=== PATIENT | female | born 1950 | race Caucasian/White ===

== ENCOUNTER 2023-12-12 15:46 | Inpatient (IN) | payer MEDICARE, OTHER ==
[2023-12-12] MEDS ORDERED: Sodium Chloride 0.9% 10 ML Syringe FLUSH PRN (16:17)
[2023-12-12] MEDS: Sodium Chloride 0.9% 1,000 ML IV SCH ×3 (17:07→22:53)
[2023-12-12 17:10] LABS: BASOPHILS PERCENT AUTO 0.3 % (0.0-1.0); EOSINOPHILS PERCENT AUTO 0.1 % (0.0-6.0); HEMATOCRIT 31.4 % (37.0-47.0); IMMATURE GRAN ABSOLUTE AUTO 0.03 K/mm3 (0.00-0.05); IMMATURE GRAN PERCENT AUTO 0.4 % (0.0-0.4); LYMPHOCYTES ABSOLUTE AUTO 1.7 K/mm3 (1.0-4.8); LYMPHOCYTES PERCENT AUTO 21.9 % (24.0-44.0); MEAN CORPUSCULAR HEMOGLOBIN 31.3 pg (28.0-32.0); MEAN CORPUSCULAR VOLUME 89.5 fl (83.0-99.0); MEAN PLATELET VOLUME 9.3 fl (9.4-12.3); MONOCYTES ABSOLUTE AUTO 0.6 K/mm3 (0.0-0.8); MONOCYTES PERCENT AUTO 7.3 % (0.0-8.0); NEUTROPHILS ABSOLUTE AUTO 5.5 K/mm3 (1.8-7.7); PLATELET COUNT,PLT 232 K/mm3 (150-400); RED BLOOD CELL COUNT 3.51 M/mm3 (4.10-5.30); WHITE BLOOD CELL COUNT,WBC 7.82 K/mm3 (3.9-11.3)
[2023-12-12 17:39] LABS: A/G RATIO 1.2 (1-2); ALBUMIN 3.9 g/dl (3.4-5.0); ANION GAP 26.6 (5-15); BILIRUBIN TOTAL 0.5 mg/dL (0.2-1.0); BUN/CREATININE RATIO 17.2 (14-18); C-REACTIVE PROTEIN 0.86 mg/dL (<0.30); CALCIUM 8.6 mg/dL (8.5-10.1); CREATININE 6.7 mg/dL (0.55-1.02); EST CRCL DRUG DOSING (CG) 5.21 mL/min; MAGNESIUM 2.2 mg/dL (1.8-2.4); PHOSPHORUS 8.4 mg/dL (2.6-4.7); POTASSIUM,K 3.6 mEq/L (3.5-5.1); PROTEIN TOTAL,TP 7.2 g/dl (6.4-8.2)
[2023-12-12 19:24] LABS: APPEARANCE,URINE CLEAR (Clear); BILIRUBIN,URINE NEGATIVE (Negative); COLOR,URINE YELLOW (Yellow); GLUCOSE,URINE NEGATIVE (Negative); KETONES,URINE NEGATIVE (Negative); LEUKOCYTE ESTERASE,URINE TRACE (Negative); NITRITE,URINE NEGATIVE (Negative); OCCULT BLOOD,URINE NEGATIVE (Negative); PH,URINE 5.5 (5.0-8.0); PROTEIN,URINE 1+ (Negative); UROBILINOGEN,URINE 0.2 (0.2-1.0)
[2023-12-12 19:25] LABS: ANION GAP 24.5 (5-15); BUN/CREATININE RATIO 18.3 (14-18); CALCIUM 8.5 mg/dL (8.5-10.1); CREATININE 6.4 mg/dL (0.55-1.02); EST CRCL DRUG DOSING (CG) 5.46 mL/min; POTASSIUM,K 3.5 mEq/L (3.5-5.1)
[2023-12-12 19:34] LABS: BACTERIA,URINE FEW /hpf (FEW); MUCUS,URINE FEW /hpf (FEW); RBC,URINE 0-5 /hpf (0-5)
[2023-12-12 22:30] LABS: ANION GAP 22.3 (5-15); BUN/CREATININE RATIO 17.9 (14-18); CALCIUM 7.9 mg/dL (8.5-10.1); CREATININE 5.8 mg/dL (0.55-1.02); EST CRCL DRUG DOSING (CG) 6.02 mL/min; POTASSIUM,K 3.3 mEq/L (3.5-5.1)
[2023-12-12] MEDS: Sodium Bicarbonate 650 MG Tab PO SCH (22:52)
[2023-12-13] MEDS: Heparin Sodium 5,000 Units/ML Vial SUBCUT SCH (00:03)
[2023-12-13 04:47] LABS: BASOPHILS PERCENT AUTO 0.4 % (0.0-1.0); EOSINOPHILS ABSOLUTE AUTO 0.1 K/mm3 (0.0-0.4); EOSINOPHILS PERCENT AUTO 1.2 % (0.0-6.0); HEMATOCRIT 25.9 % (37.0-47.0); IMMATURE GRAN ABSOLUTE AUTO 0.02 K/mm3 (0.00-0.05); IMMATURE GRAN PERCENT AUTO 0.4 % (0.0-0.4); LYMPHOCYTES ABSOLUTE AUTO 1.7 K/mm3 (1.0-4.8); LYMPHOCYTES PERCENT AUTO 32.3 % (24.0-44.0); MEAN CORPUSCULAR HGB CONC 34.7 g/dl (32.0-36.0); MEAN CORPUSCULAR VOLUME 89.3 fl (83.0-99.0); MEAN PLATELET VOLUME 9.6 fl (9.4-12.3); MONOCYTES ABSOLUTE AUTO 0.5 K/mm3 (0.0-0.8); MONOCYTES PERCENT AUTO 9.9 % (0.0-8.0); NEUTROPHILS ABSOLUTE AUTO 2.9 K/mm3 (1.8-7.7); NEUTROPHILS PERCENT AUTO 55.8 % (41.0-71.0); PLATELET COUNT,PLT 209 K/mm3 (150-400); WHITE BLOOD CELL COUNT,WBC 5.17 K/mm3 (3.9-11.3)
[2023-12-13 05:13] LABS: A/G RATIO 1.1 (1-2); ANION GAP 22.2 (5-15); BILIRUBIN TOTAL 0.4 mg/dL (0.2-1.0); BUN/CREATININE RATIO 20.6 (14-18); CALCIUM 7.8 mg/dL (8.5-10.1); EST CRCL DRUG DOSING (CG) 7.34 mL/min; PHOSPHORUS 6.8 mg/dL (2.6-4.7); POTASSIUM,K 3.2 mEq/L (3.5-5.1); PROTEIN TOTAL,TP 5.8 g/dl (6.4-8.2)
[2023-12-13 07:45] LABS: RETICULOCYTE COUNT PERCENT 2.51 % (0.50-2.00)
[2023-12-13 12:02] LABS: BASE EXCESS ARTERIAL -13.6 (-2-2.0); BICARBONATE,ARTERIAL 10.7 meq/L (22.0-26.0); O2 SATURATION ARTERIAL 98.5 % (96.0-97.0); PCO2 ARTERIAL 20.5 mmHg (35.0-45.0)
[2023-12-13] MEDS: Pantoprazole 40 MG Tab.CR PO SCH (14:03)
[2023-12-13] MEDS: Aspirin 81 MG Tab.EC PO SCH (14:03)
[2023-12-13] MEDS: Citalopram 20 MG Tab PO SCH (14:03)
[2023-12-13 15:12] LABS: IRON,FE 76 ug/dL (50-170); PERCENT FE SATURATION 24 % (20-55); TRANSFERRIN 249 mg/dL (202-364)
[2023-12-13 15:13] LABS: TOTAL IRON BINDING CAPACITY 311 ug/dL (100-400)
[2023-12-13 15:17] LABS: ANION GAP 21.3 (5-15); BUN/CREATININE RATIO 21.5 (14-18); CALCIUM 7.8 mg/dL (8.5-10.1); CREATININE 4.1 mg/dL (0.55-1.02); EST CRCL DRUG DOSING (CG) 8.95 mL/min; POTASSIUM,K 3.3 mEq/L (3.5-5.1)
[2023-12-13 15:18] LABS: FERRITIN 82 ng/ml (8-252); LACTATE DEHYDROGENASE,LDH 207 U/L (81-234)
[2023-12-13] MEDS: Sodium Bicarbonate 650 MG Tab PO SCH (16:28)
[2023-12-13] MEDS: Sevelamer Carbonate 800 MG Tab PO SCH ×2 (16:58→18:57)
[2023-12-13] MEDS ORDERED: Sevelamer Carbonate 800 MG Tab PO SCH (17:00)
[2023-12-13] MEDS ORDERED: Sodium Bicarbonate 650 MG Tab PO SCH (21:00)
[2023-12-14] MEDS: Pravastatin 20 MG Tab PO SCH (04:49)
[2023-12-14] MEDS: Gabapentin 300 MG Cap PO SCH (04:50)
[2023-12-14] MEDS: Potassium Chloride 20 MEQ Tab.ER PO ONE ×2 (04:50→09:50)
[2023-12-14 04:57] LABS: BASOPHILS PERCENT AUTO 0.4 % (0.0-1.0); EOSINOPHILS ABSOLUTE AUTO 0.1 K/mm3 (0.0-0.4); EOSINOPHILS PERCENT AUTO 1.3 % (0.0-6.0); HEMATOCRIT 25.3 % (37.0-47.0); HEMOGLOBIN 8.7 gm/dl (12.0-16.0); IMMATURE GRAN ABSOLUTE AUTO 0.01 K/mm3 (0.00-0.05); IMMATURE GRAN PERCENT AUTO 0.2 % (0.0-0.4); MEAN CORPUSCULAR HEMOGLOBIN 31.1 pg (28.0-32.0); MEAN CORPUSCULAR HGB CONC 34.4 g/dl (32.0-36.0); MEAN CORPUSCULAR VOLUME 90.4 fl (83.0-99.0); MEAN PLATELET VOLUME 9.5 fl (9.4-12.3); MONOCYTES ABSOLUTE AUTO 0.5 K/mm3 (0.0-0.8); MONOCYTES PERCENT AUTO 9.2 % (0.0-8.0); NEUTROPHILS ABSOLUTE AUTO 2.9 K/mm3 (1.8-7.7); NEUTROPHILS PERCENT AUTO 52.9 % (41.0-71.0); PLATELET COUNT,PLT 188 K/mm3 (150-400); WHITE BLOOD CELL COUNT,WBC 5.55 K/mm3 (3.9-11.3)
[2023-12-14 06:06] LABS: ANION GAP 20.3 (5-15); BUN/CREATININE RATIO 24.2 (14-18); CREATININE 3.1 mg/dL (0.55-1.02); EST CRCL DRUG DOSING (CG) 11.83 mL/min; POTASSIUM,K 3.3 mEq/L (3.5-5.1)
[2023-12-14 06:47] LABS: NEUTROPHILS% 62 % (41-71)
[2023-12-16 04:46] LABS: VITAMIN D 1,25 31.4 pg/mL (19.9-79.3)
[2023-12-17 04:42] LABS: ALBUMIN 3.24 g/dL (3.75-5.01); ALPHA 1 GLOBULIN 0.29 g/dL (0.19-0.46); ALPHA 2 GLOBULIN 0.82 g/dL (0.48-1.05); BETA GLOBULIN 0.73 g/dL (0.48-1.10); GAMMA 0.43 g/dL (0.62-1.51); TOTAL PROTEIN, SERUM 5.5 g/dL (6.3-8.2)
== END 2023-12-14 14:24 | disposition home or self-care (01) | DRG 683 ==
LOC: JD.ED 15:46 → JD.MS 22:40
PROVIDERS: ADMIT Family Medicine; ATTEND Family Medicine
DX: N17.9 Acute kidney failure, unspecified (principal); N17.0 Acute kidney failure with tubular necrosis; E87.20 Acidosis, unspecified; I13.0 Hypertensive heart and chronic kidney disease with heart failure and stage 1 through stage 4 chronic kidney disease, or unspecified chronic kidney disease; E78.00 Pure hypercholesterolemia, unspecified; I50.9 Heart failure, unspecified; N18.31 Chronic kidney disease, stage 3a; E03.9 Hypothyroidism, unspecified; Z79.1 Long term (current) use of non-steroidal anti-inflammatories (NSAID); H54.7 Unspecified visual loss; E86.0 Dehydration; G62.9 Polyneuropathy, unspecified; D63.1 Anemia in chronic kidney disease; E83.39 Other disorders of phosphorus metabolism; K21.9 Gastro-esophageal reflux disease without esophagitis; Z90.49 Acquired absence of other specified parts of digestive tract; Z79.82 Long term (current) use of aspirin; Z79.899 Other long term (current) drug therapy; Z98.890 Other specified postprocedural states
CPT/HCPCS: 36415; 36600; 74176; 74176-26; 80048; 80053; 81001; 82652; 82728; 82803; 83540; 83605; 83615; 83735; 83880; 84100; 84155; 84165; 84466; 84550; 85025; 85045; 86140; 86334; 87086; 87088; 87186; 96360; 96361; 99284; 99285-25; A9270-GY; J1644; J7030